=== PATIENT | female | born 1995 | race Caucasian/White ===

== ENCOUNTER 2017-10-29 00:48 | Emergency (ER) | payer BC, OTHER, SELFPAY ==
[2017-10-29 00:49] VITALS: BP 127/81; PULSE 69; RESP 15; TEMP 36.4; O2SAT 100; BMI 22.1
--- NOTE | 2017-10-29 01:22 | ED.DCSUM_ITS ---
- ER Visit Summary Date of Service: 10/29/17 Chief Complaint: Left lower quadrant abdominal pelvic pain. History of Present Illness: The patient is a 22 F no senior past medical history other than prior ovarian cyst and one prior . Patient states that around 2:00 on Friday in the afternoon started having some mild left lower quadrant pelvic pain. She thinks it may be a prior ovarian cyst. States the pain slightly worse. She denies nausea, vomiting or diarrhea constipation. She denies dysuria. She denies any vaginal bleeding or discharge. She denies any fever. Her last menstrual period has been within the last week. She does not believe she is . Physical Examination: Well-appearing young female. Vital signs are stable and afebrile. H EENT exam unremarkable. Lungs clear to auscultation bilaterally. Heart regular rate and rhythm no murmur. Abdomen soft. Nontender. Nondistended normal bowel sounds no peritoneal signs. She complains of pain in the very low left lower quadrant pelvic area but there is really no significant reproducible pain. Right upper right lower quadrant unremarkable. Her abdomen soft and nondistended. Normal bowel sounds. No hernias or masses. Patient was offered but deferred a pelvic exam at this time. She is moving all 4 extremities. Back is nontender. Neurologic exam is normal. Test Results: Urinalysis shows no acute abnormality and a small amount of blood. Otherwise no signs of infection. Clinically this does not appear to be a kidney stone I do not think the blood has any specific diagnostic advantage. Urine negative. Patient is doing well on repeat exam at 0150 a.m. and will be discharged. Emergency Department Course and Treatment: Patient has left lower quadrant pelvic pain at [facility] may not be secondary to ovarian cyst. She understands she does not need emergent imaging. She will follow-up with her [facility]. Treatment Plan: Discharged with Tylenol and Motrin for pain. Follow-up with her [facility] [employer] [employer]. Disposition: Discharge Impression: Acute left-sided pelvic pain History of ovarian cyst This note was generated with [employer] dictation software. It may contain incorrect words, spelling, and punctuation that were not noted in review of the chart prior to signing ED Disposition - Plan for ED Patient: Disposition: Home or Assisted Living Chief Complaint: Abd Pain Instructions: ED Abdominal Pain Unkn Cause, ED Cyst Ovarian Referrals: Bere Camarillo MD [STAFF PHYSICIAN] - 1 Week if not improving Additional Instructions: Motrin for pain and/or Tylenol. Call and follow-up with your [facility] [employer] [employer] they can do further evaluation and if needed an outpatient pelvic ultrasound to evaluate you for the pain and possible ovarian cyst.
[2017-10-29 01:27] LABS: Bacteria 0 SEEN /hpf (None Seen); Mucous, Urine 0 SEEN /hpf (<or=2+); Squamous Epithelial Cells - UA 0 SEEN /hpf (5-10); White Blood Cells 0 SEEN /hpf (0-5)
[2017-10-29 01:29] LABS: Color, Urine Yellow (Yellow); Glucose, Dipstick Normal (Normal); Ketone-Dipstick Negative (Negative); Leukocyte Esterase-Dipstick Negative /ul (Negative); Nitrite-Dipstick Negative (Negative); Occult Blood-Urine 150 /ul (Negative); Protein-Dipstick 15 mg/dl (Negative); Specific Gravity, Urine 1.025 (1.002-1.030); Urine Bilirubin Dipstick Negative (Negative); Urine Clarity Clear (Clear); Urine Urobilinogen Normal (Normal)
[2017-10-29 01:34] LABS: Internal QC Validated? YES +Cl - CLEAR BKGD; Pregnancy, Urine Negative Negative
[2017-10-29 01:36] LABS: Red Blood Cells-Urine 5-10 SEEN /hpf (0-5)
== END 2017-10-29 01:59 | disposition home or self-care (01) ==
PROVIDERS: Emergency Provider Emergency Medicine; Family Provider Family Medicine; PCP Family Medicine
DX: R10.2 Pelvic and perineal pain (principal)
CPT/HCPCS: 81001; 81025; 87086; 99282

== ENCOUNTER → 2017-12-31 20:06 | Outpatient (CLI) | payer BC, OTHER, SELFPAY ==
[2018-01-07 11:15] LABS: HPV Reflexed? NOT INDICATED
== END ==
PROVIDERS: Family Provider Family Medicine; PCP Family Medicine; Visit Provider Obstetrics & Gynecology
DX: Z12.4 Encounter for screening for malignant neoplasm of cervix (principal)
CPT/HCPCS: 88175; G0145

== ENCOUNTER → 2018-06-24 17:20 | Outpatient (CLI) | payer BC, OTHER, SELFPAY ==
[2018-07-01 12:54] LABS: HPV Reflexed? NOT INDICATED
== END ==
PROVIDERS: Visit Provider Obstetrics & Gynecology
DX: R87.612 Low grade squamous intraepithelial lesion on cytologic smear of cervix (LGSIL) (principal)
CPT/HCPCS: 88175; G0145

== ENCOUNTER 2018-08-27 03:18 | Emergency (ER) | payer OTHER, BC, SELFPAY ==
[2018-08-27 03:19] VITALS: BP 138/94; PULSE 71; RESP 18; TEMP 36.7; O2SAT 100; BMI 22.8
--- NOTE | 2018-08-27 04:29 | ED.DCSUM_ITS ---
History of Present Illness Chief Complaint: Head Injury Informant: Patient Narrative: Patient suffered a head injury at work. She stated that she squeezed her finger at work and hurt it. The pain caused her to get lightheaded and she passed out hit the back of her head on an object and then fell to the floor. She has had syncope in the past. This was related to the pain in her finger however. She denies any chest pain or shortness of breath. She states she just has pain where she struck her head. She developed a laceration and is unsure of her last tetanus shot. Comes in for further treatment of her laceration. Current severity is mild. Denies any other medical problems. Past Medical History - Allergies and Home Meds Allergies/Adverse Reactions: Allergies No Known Allergies Allergy (Verified 08/27/18 03:18) Primary Care Physician: Yovany Love MD [Primary Care Provider] - Prior records reviewed: Yes Past Medical History: - - Syncope Surgical History: noncontributory Smoking Status: Never smoker Alcohol: None Drugs: None Review of Systems General: Denies: Chills, Fever, Sweats Eyes: Denies: Visual changes - bilaterally, Diplopia ENT: Denies: Rhinorrhea, Sore throat Cardiovascular: Denies: Chest pain, Palpitations Respiratory: Denies: Dyspnea, Cough, Dyspnea on exertion Gastrointestinal: Denies: Abdominal pain, Nausea, Vomiting, Diarrhea, Melena, Hematochezia Genitourinary: Denies: Dysuria, Hematuria, Frequency Musculoskeletal: Denies: Back pain, Extremity Pain Skin: Reports: Wounds. Denies: Rash Neurological: Reports: Headache. Denies: Weakness, Numbness Physical Exam Vital Signs/Narrative: Vital Signs Temp Pulse Resp BP Pulse Ox 08/27/18 03:19 98.1 F 71 18 138/94 H 100 General: Well nourished, Well developed, No Acute Distress Head: Normocephalic, - - Has a 1 inch laceration on her posterior occiput. She has a satellite 0.25 cm laceration. No significant hematoma.. Negative for: Atraumatic Eyes: Perrl, EOMI ENT: Moist mucous membranes, No rhinorrhea Neck: Supple, Nontender Cardiovascular: Regular rate, Regular rhythm, No murmurs Respiratory: No distress, CTA bilaterally, Chest nontender Abdomen: Soft, Nontender, Nondistended, Normal bowel sounds Back: Nontender, Normal Inspection Extremities: Nontender, No edema Skin: Normal color, No rash Neurological: Alert, Oriented x3, Cranial nerves II-XII grossly intact, Normal Strength, Normal Sensation Psychological: Normal affect, Normal Mood Diagnostic/Tx/Re-eval - Medical Decision Making Patient resting comfortably. At this time I think she had a vagal syncopal episode. I do not feel she needs lab work or imaging for that. Her wound was cleansed with chlorhexidine. It was washed with saline. Her large incision was closed with 5 brendan. The other incision was closed with 1 staple. Bacitracin was applied. She will follow-up as an outpatient in 10 days to have her brendan removed. ED Disposition - Plan for ED Patient: Disposition: Home or Assisted Living Diagnosis: Syncope, Laceration of head Instructions: ED Head Injury Closed, ED Laceration Scalp Stitch Or Stap Referrals: [facility] [GROUP OF PHYSICIANS] - Additional Instructions: [place] removed in 10 days
[2018-08-27] MEDS: Acetaminophen 325 MG Tablet 650 MG PO (04:38)
[2018-08-27 04:44] VITALS: BP 118/78; PULSE 72; RESP 16; O2SAT 100
== END 2018-08-27 04:45 | disposition home or self-care (01) ==
PROVIDERS: Emergency Provider Emergency Medicine; Family Provider Family Medicine; PCP Family Medicine
DX: S01.01XA Laceration without foreign body of scalp, initial encounter (principal); R55 Syncope and collapse; W19.XXXA Unspecified fall, initial encounter; Y93.9 Activity, unspecified; Y92.9 Unspecified place or not applicable; Y99.0 Civilian activity done for income or pay
CPT/HCPCS: 12001; 99283